=== PATIENT | female | born 1970 | race Two or more races ===

== ENCOUNTER 2024-11-30 06:00 | Day surgery (SDC) | payer OTHER ==
[2024-11-28 15:02] LABS: BASO % 0.9 % (0.1-1.2); EOS # 0.46 (0.04-0.54); EOS % 8.5 % (0.7-7.0); LYMPH # 1.77 (1.18-3.74); LYMPH % 32.7 % (19.3-53.1); MEAN PLATELET VOLUME 10.30 fl (9.4-12.4); MONO # 0.45 (0.24-0.82); MONO % 8.3 % (4.7-12.5); NEUT # 2.68 (1.56-6.13); NEUT % 49.4 % (34.0-71.1); RED CELL DISTRIBUTION WIDTH 13.0 % (11.6-14.4)
[2024-11-28 15:04] LABS: INR 1.0
[2024-11-28 15:05] LABS: ALT/SGPT 25.0 U/L (12-78); AST/SGOT 20.0 U/L (15-37); BILIRUBIN TOTAL 1.44 mg/dL (0.3-1.2); BUN CREA RATIO 17.0 (7.0-25.0); CREATININE SERUM 0.77 mg/dL (0.55-1.02); GFR 77.54; GLOBULINA 3.1 G/DL (2.4-3.5); GLUCOSE FASTING 80.0 mg/dL (65-100); OSMOLALITY SERUM 284.0 MOSM/KG (275-295)
[2024-11-28 15:22] VITALS: BP 104/73
[~2024-11-30] VITALS: Ht 172.7 cm; Wt 78.0 kg
[~2024-11-30 06:00] MED LIST: AMOXICILLIN; NUVIGIL50 MG; PROMETRIUM200 MG
[2024-11-30] MEDS ORDERED: CEFAZOLIN SODIUM 1,000 MG VIAL ONE (07:10)
[2024-11-30] MEDS ORDERED: POVIDONE-IODINE 118 ML BOTT TOP ONE (07:28)
[2024-11-30] MEDS ORDERED: TRAM1TAB98 PO (08:39)
[2024-11-30] MEDS ORDERED: DOXYCYCLINE HY100 M2 PO (08:39)
== END 2024-11-30 10:00 | disposition home or self-care (01) ==
LOC: CIR.AMB 06:00
PROVIDERS: ATTEND Obstetrics & Gynecology
DX: D25.0 Submucous leiomyoma of uterus (principal); N84.0 Polyp of corpus uteri; N92.0 Excessive and frequent menstruation with regular cycle; N80.03 Adenomyosis of the uterus; Z88.6 Allergy status to analgesic agent